=== PATIENT | female | born 1990 | race Caucasian/White ===

== ENCOUNTER 2024-07-17 06:24 | Day surgery (SDC) | payer OTHER ==
[2024-07-14 10:07] VITALS: BMI 48.2
[2024-07-17] MEDS ORDERED: Lidocaine 1% PF 5 ML VIAL ONE (08:02)
[2024-07-17] MEDS ORDERED: Midazolam HCl 2 mg/2 ml Vial ONE (08:26)
[2024-07-17] MEDS ORDERED: PROPOFOL 200 MG/20 ML VIAL ONE (08:44)
[2024-07-17] MEDS ORDERED: PROPOFOL 20 ML ONE (08:55)
== END 2024-07-17 10:38 | disposition home or self-care (01) ==
LOC: SDC 06:24
PROVIDERS: ATTEND Internal Medicine Gastroenterology
PROC: 0D758ZZ Dilation of Esophagus, Via Natural or Artificial Opening Endoscopic (ICD-10-PCS; principal; 2024-07-17)
PROC: 0DBH8ZZ Excision of Cecum, Via Natural or Artificial Opening Endoscopic (ICD-10-PCS; principal; 2024-07-17)
PROC: 0DBL8ZZ Excision of Transverse Colon, Via Natural or Artificial Opening Endoscopic (ICD-10-PCS; principal; 2024-07-17)
DX: D12.5 Benign neoplasm of sigmoid colon (principal); K63.5 Polyp of colon; R13.10 Dysphagia, unspecified; B96.81 Helicobacter pylori [H. pylori] as the cause of diseases classified elsewhere; K92.1 Melena; R59.0 Localized enlarged lymph nodes; K21.9 Gastro-esophageal reflux disease without esophagitis; F41.9 Anxiety disorder, unspecified; F32.A Depression, unspecified; I10 Essential (primary) hypertension; K58.9 Irritable bowel syndrome, unspecified; G35 Multiple sclerosis; G40.909 Epilepsy, unspecified, not intractable, without status epilepticus; Z86.711 Personal history of pulmonary embolism; Z79.899 Other long term (current) drug therapy
CPT/HCPCS: 88305; J2250; J2704